=== PATIENT | female | born 1980 | race Caucasian/White ===

== ENCOUNTER 2017-05-12 19:33 | Emergency (ER) | payer OTHER ==
[2017-05-12 19:45] VITALS: BP 135/84; PULSE 92; RESP 14; TEMP 98.7; O2SAT 100
[2017-05-12] MEDS ORDERED: LORA-474 PO (20:09)
[2017-05-12] MEDS ORDERED: ADDE30TA PO (20:09)
[2017-05-12 20:26] LABS: AUTOMATED NEUTROPHIL # 3.3 TH/MM3 (1.8-7.7); BASOPHIL # 0.1 TH/MM3 (0-0.2); BASOPHIL % 0.9 % (0.0-2.0); EOSINOPHIL # 0.1 TH/MM3 (0-0.4); EOSINOPHIL % 2.4 % (0.0-4.0); HEMATOCRIT 41.6 % (35.0-46.0); LYMPH % 29.2 % (9.0-44.0); LYMPHOCYTE # 1.7 TH/MM3 (1.0-4.8); MEAN CELL VOLUME 96.9 FL (80.0-100.0); MEAN CORPUSCULAR HEMOGLOBIN 32.7 PG (27.0-34.0); MEAN CORPUSCULAR HGB CONC 33.7 % (32.0-36.0); MEAN PLATELET VOLUME 7.9 FL (7.0-11.0); MONO % 10.4 % (0.0-8.0); MONOCYTE # 0.6 TH/MM3 (0-0.9); NEUT % 57.1 % (16.0-70.0); PLATELET COUNT 252 TH/MM3 (150-450); RED CELL DISTRIBUTION WIDTH 12.9 % (11.6-17.2); WHITE BLOOD COUNT 5.8 TH/MM3 (4.0-11.0)
--- NOTE | 2017-05-12 20:27 | PD ---
HPI Chief Complaint: Psychiatric Symptoms Time Seen by Provider: 05:22 Travel History International Travel<30 days: No Contact w/Intl Traveler<30days: No Traveled to known affect area: No History of Present Illness HPI 37-year-old white female presents to emergency department for evaluation under Martinez act by PD. The patient allegedly had taken an intentional overdose of her medications. She just had her medications refilled today. Patient states that Dr. Vences feels her medications. She takes Adderall and Ativan. She had taken her Adderall this morning and has been taking additional Ativan throughout the day. According to the Martinez act states that she has taken 6 additional pills but this is refuted by the patient. She states that she has taken her typical dose of Adderall and has taken approximately 3-1 mg Ativan. She admits to feeling depressed. She is upset that her children are going [place] the [place] and she is fighting with her boyfriend. She also states that she wanted to escape reality but does not really want to hurt herself. She denies any homicidal ideation. No other ingestions other than 2 beers. No recent illness. PFSH Past Medical History ADD: Yes Anxiety: Yes Depression: Yes Immunizations Current: Yes Tetanus Vaccination: < 5 Years ?: Not LMP: 04/28/17 : 2 Para: 2 Past Surgical History Surgical History: No Previous Surgery Social History Alcohol Use: Yes Tobacco Use: No Substance Use: No Allergies-Medications (Allergen,Severity, Reaction): Coded Allergies: No Known Allergies (Unverified , 05/12/17) Reported Meds & Prescriptions Reported Meds & Active Scripts Active Reported Adderall (Amphetamine-Dextroamphetamine) 30 Mg Tab 30 Mg PO DAILY Avoid late evening doses. Space doses at least 4 to 6 hours if more than once/day dosing. Ativan (Lorazepam) 1 Mg Tab 1 Mg PO HS PRN Review of Systems General / Constitutional: No: Fever Eyes: No: Visual changes HENT: No: Headaches Cardiovascular: No: Chest Pain or Discomfort Respiratory: No: Shortness of Breath Gastrointestinal: No: Abdominal Pain Genitourinary: No: Dysuria Musculoskeletal: No: Pain Skin: No Rash Neurologic: No: Weakness Psychiatric: Positive: Anxiety, Depression, Mood Disorder, No: Suicidal Ideations, Disorder of Thought, Substance Abuse, Homicidal Ideation Endocrine: No: Polydipsia Hematologic/Lymphatic: No: Easy Bruising Physical Exam Narrative GENERAL: Well-nourished, well-developed patient. Patient is sedate. Speech is slurred. She is somewhat ataxic. SKIN: Warm and dry. HEAD: Normocephalic and atraumatic. EYES: No scleral icterus. No injection or drainage. ENT: No nasal drainage noted. Mucous membranes pink. Airway patent. NECK: Supple, trachea midline. Moves head freely without obvious discomfort. CARDIOVASCULAR: Regular rate and rhythm without murmurs, gallops, or rubs. RESPIRATORY: Breath sounds equal bilaterally. No accessory muscle use. GASTROINTESTINAL: Abdomen soft, non-tender, nondistended. EXTREMITIES: No cyanosis or edema. BACK: Nontender without obvious deformity. No CVA tenderness. NEURO: Patient is alert and oriented. no sensorimotor deficits. Nonfocal. Slurred speech. PSYCH: No delusions. No auditory or visual hallucinations. Data Data Last Documented VS Vital Signs Date Time Temp Pulse Resp B/P (MAP) Pulse Ox O2 Delivery O2 Flow Rate FiO2 05/13/17 10:18 05/13/17 06:11 72 18 99 Room Air 05/12/17 19:45 98.7 Orders Orders Complete Blood Count With Diff (05/12/17 19:45) Comprehensive Metabolic Panel (05/12/17 19:45) Urinalysis - C+S If Indicated (05/12/17 19:45) Ed Urine Pregnancytest Poc (05/12/17 19:45) Psych Screen (05/12/17 19:45) Drug Screen, Random Urine (05/12/17 19:45) Alcohol (Ethanol) (05/12/17 19:45) Salicylates (Aspirin) (05/12/17 19:45) Tylenol (Acetaminophen) (05/12/17 19:45) Diet Regular Basic (05/13/17 Breakfast) Ed Discharge Order (05/13/17 10:07) Labs Laboratory Tests Test 05/12/17 19:55 White Blood Count 5.8 TH/MM3 Red Blood Count 4.30 MIL/MM3 Hemoglobin 14.0 GM/DL Hematocrit 41.6 % Mean Corpuscular Volume 96.9 FL Mean Corpuscular Hemoglobin 32.7 PG Mean Corpuscular Hemoglobin Concent 33.7 % Red Cell Distribution Width 12.9 % Platelet Count 252 TH/MM3 Mean Platelet Volume 7.9 FL Neutrophils (%) (Auto) 57.1 % Lymphocytes (%) (Auto) 29.2 % Monocytes (%) (Auto) 10.4 % Eosinophils (%) (Auto) 2.4 % Basophils (%) (Auto) 0.9 % Neutrophils # (Auto) 3.3 TH/MM3 Lymphocytes # (Auto) 1.7 TH/MM3 Monocytes # (Auto) 0.6 TH/MM3 Eosinophils # (Auto) 0.1 TH/MM3 Basophils # (Auto) 0.1 TH/MM3 CBC Comment DIFF FINAL Differential Comment Urine Color COLORLESS Urine Turbidity HAZY Urine pH 6.0 Urine Specific [place] 1.002 Urine Protein NEG mg/dL Urine Glucose (UA) NEG mg/dL Urine Ketones NEG mg/dL Urine Occult Blood NEG Urine Nitrite NEG Urine Bilirubin NEG Urine Urobilinogen LESS THAN 2.0 MG/DL Urine Leukocyte Esterase TRACE Urine RBC 1 /hpf Urine WBC 1 /hpf Urine Squamous Epithelial Cells 2 /hpf Urine Amorphous Sediment RARE Urine Bacteria RARE /hpf Microscopic Urinalysis Comment CULT NOT INDICATED Blood Urea Nitrogen 8 MG/DL Creatinine 0.83 MG/DL Random Glucose 61 MG/DL Total Protein 7.9 GM/DL Albumin 4.0 GM/DL Calcium Level 9.1 MG/DL Alkaline Phosphatase 68 U/L Aspartate Amino Transf (AST/SGOT) 16 U/L Alanine Aminotransferase (ALT/SGPT) 20 U/L Total Bilirubin 0.7 MG/DL Sodium Level 140 MEQ/L Potassium Level 3.5 MEQ/L Chloride Level 105 MEQ/L Carbon Dioxide Level 27.8 MEQ/L Anion Gap 7 MEQ/L Estimat Glomerular Filtration Rate 77 ML/MIN Salicylates Level 2.3 MG/DL Urine Opiates Screen NEG Acetaminophen Level LESS THAN 2.0 MCG/ML Urine Barbiturates Screen NEG Urine Amphetamines Screen POS Urine Benzodiazepines Screen NEG Urine Cocaine Screen NEG Urine Cannabinoids Screen POS Ethyl Alcohol Level 115 MG/DL MDM Medical Decision Making Medical Screen Exam Complete: Yes Emergency Medical Condition: Yes Medical Record Reviewed: Yes Differential Diagnosis MDM: High Differential diagnoses: Schizophrenia, schizoaffective disorder, bipolar, anxiety, depression, adjustment reaction, mood disorder NOS, ODD, depressive disorder NOS, dementia, dementia with agitation, psychosis NOS, substance induced mood disorder, DMDD, Asperger syndrome, infection,electrolyte abnormality, malingering. Narrative Course Mental health screening discussed with the patient. Psychiatric screen ordered. The patient has been medically cleared. Diagnosis Primary Impression: Medical clearance for psychiatric admission Additional Impression: intentional overdose Condition: Stable Telly Ponce May 12, 2017 20:27
[2017-05-12 20:55] LABS: ACETAMINOPHEN LESS THAN 2.0 MCG/ML (10.0-30.0); ALKALINE PHOSPHATASE 68 U/L (45-117); ALT (GPT) 20 U/L (10-53); AST (GOT) 16 U/L (15-37); BICARBONATE 27.8 MEQ/L (21.0-32.0); BLOOD UREA NITROGEN 8 MG/DL (7-18); CALCIUM 9.1 MG/DL (8.5-10.1); CHLORIDE 105 MEQ/L (98-107); CREATININE 0.83 MG/DL (0.50-1.00); GLOMERULAR FILTRATION RATE 77 ML/MIN (>89); GLUCOSE,RANDOM 61 MG/DL (74-106); SODIUM (NA) 140 MEQ/L (136-145); TOTAL BILIRUBIN ADULT 0.7 MG/DL (0.2-1.0); TOTAL PROTEIN 7.9 GM/DL (6.4-8.2)
[2017-05-12 21:30] LABS: AMORPHOUS SEDIMENT, URINE RARE; BACTERIA, URINE RARE /hpf; BILIRUBIN, URINE NEG (NEG); BLOOD, URINE NEG (NEG); GLUCOSE,URINE NEG (NEG); KETONE, URINE NEG (NEG); NITRITE,URINE NEG (NEG); SQUAMOUS EPITHELIAL CELL URINE 2 /hpf (0-5); URINE COLOR COLORLESS (YELLW/STRAW); URINE LEUKOCYTE ESTERASE TRACE (NEG)
[2017-05-12 22:47] VITALS: BP 101/71; PULSE 77; RESP 18; O2SAT 97
[2017-05-13 06:11] VITALS: BP 124/80; PULSE 72; RESP 18; O2SAT 99
--- NOTE | 2017-05-13 10:08 | PD ---
Physical Exam Time Seen by Provider: 10:07 Narrative Please refer to previous providers dictation for details surrounding the patient 's current visit. Data Data Last Documented VS Vital Signs Date Time Temp Pulse Resp B/P (MAP) Pulse Ox O2 Delivery O2 Flow Rate FiO2 05/13/17 06:11 72 18 124/80 (95) 99 Room Air 05/12/17 19:45 98.7 Orders Orders Complete Blood Count With Diff (05/12/17 19:45) Comprehensive Metabolic Panel (05/12/17 19:45) Urinalysis - C+S If Indicated (05/12/17 19:45) Ed Urine Pregnancytest Poc (05/12/17 19:45) Psych Screen (05/12/17 19:45) Drug Screen, Random Urine (05/12/17 19:45) Alcohol (Ethanol) (05/12/17 19:45) Salicylates (Aspirin) (05/12/17 19:45) Tylenol (Acetaminophen) (05/12/17 19:45) Diet Regular Basic (05/13/17 Breakfast) Ed Discharge Order (05/13/17 10:07) Labs Laboratory Tests Test 05/12/17 19:55 White Blood Count 5.8 TH/MM3 Red Blood Count 4.30 MIL/MM3 Hemoglobin 14.0 GM/DL Hematocrit 41.6 % Mean Corpuscular Volume 96.9 FL Mean Corpuscular Hemoglobin 32.7 PG Mean Corpuscular Hemoglobin Concent 33.7 % Red Cell Distribution Width 12.9 % Platelet Count 252 TH/MM3 Mean Platelet Volume 7.9 FL Neutrophils (%) (Auto) 57.1 % Lymphocytes (%) (Auto) 29.2 % Monocytes (%) (Auto) 10.4 % Eosinophils (%) (Auto) 2.4 % Basophils (%) (Auto) 0.9 % Neutrophils # (Auto) 3.3 TH/MM3 Lymphocytes # (Auto) 1.7 TH/MM3 Monocytes # (Auto) 0.6 TH/MM3 Eosinophils # (Auto) 0.1 TH/MM3 Basophils # (Auto) 0.1 TH/MM3 CBC Comment DIFF FINAL Differential Comment Urine Color COLORLESS Urine Turbidity HAZY Urine pH 6.0 Urine Specific [place] 1.002 Urine Protein NEG mg/dL Urine Glucose (UA) NEG mg/dL Urine Ketones NEG mg/dL Urine Occult Blood NEG Urine Nitrite NEG Urine Bilirubin NEG Urine Urobilinogen LESS THAN 2.0 MG/DL Urine Leukocyte Esterase TRACE Urine RBC 1 /hpf Urine WBC 1 /hpf Urine Squamous Epithelial Cells 2 /hpf Urine Amorphous Sediment RARE Urine Bacteria RARE /hpf Microscopic Urinalysis Comment CULT NOT INDICATED Blood Urea Nitrogen 8 MG/DL Creatinine 0.83 MG/DL Random Glucose 61 MG/DL Total Protein 7.9 GM/DL Albumin 4.0 GM/DL Calcium Level 9.1 MG/DL Alkaline Phosphatase 68 U/L Aspartate Amino Transf (AST/SGOT) 16 U/L Alanine Aminotransferase (ALT/SGPT) 20 U/L Total Bilirubin 0.7 MG/DL Sodium Level 140 MEQ/L Potassium Level 3.5 MEQ/L Chloride Level 105 MEQ/L Carbon Dioxide Level 27.8 MEQ/L Anion Gap 7 MEQ/L Estimat Glomerular Filtration Rate 77 ML/MIN Salicylates Level 2.3 MG/DL Urine Opiates Screen NEG Acetaminophen Level LESS THAN 2.0 MCG/ML Urine Barbiturates Screen NEG Urine Amphetamines Screen POS Urine Benzodiazepines Screen NEG Urine Cocaine Screen NEG Urine Cannabinoids Screen POS Ethyl Alcohol Level 115 MG/DL MDM Medical Record Reviewed: Yes Supervised Visit with LEROY: No Narrative Course Patient has been seen and evaluated by psychiatry. Martinez act has been lifted. Patient will be discharged home with no further acute medical needs at this time. Diagnosis Primary Impression: Medical clearance for psychiatric admission Additional Impression: intentional overdose Referrals: [facility] (Out patient) Med/Other Pt SpecificInfo: No Change to Meds Disposition: 01 DISCHARGE HOME Condition: Stable CatesNandini price NITISH May 13, 2017 10:08
--- NOTE | 2017-05-13 10:11 | PD ---
History of Present Illness Chief Complaint: Psychiatric Symptoms Time Seen by Provider: 10:00 Travel History International Travel<30 Days: No Contact w/Intl Traveler<30days: No Known affected area: No Legal Status Legal Status: Martinez Act Martinez Act Signed By: Maria Teresa Tierney History of Present Illness: 37-year-old female presents under a Martinez act after allegedly overdosing on medication and expressing suicidal thinking. Patient denies an overdose on her medication and no longer makes statements of a suicidal nature. She acknowledges and regrets her statements last night. She was noted to be intoxicated with alcohol and she does take benzodiazepines and Adderall as prescription medicines. She was fighting with her boyfriend and feels this was the cause of her behavior. She is now verbally greg for safety and she is competent to do so. She has no evidence of intoxication, psychotic thinking , or cognitive deficits. PFSH Past Medical History ADD: Yes Anxiety: Yes Depression: Yes Immunizations Current: Yes Tetanus Vaccination: < 5 Years ?: Not LMP: 04/28/17 : 2 Para: 2 Past Surgical History Surgical History: No Previous Surgery Psychiatric History Psychiatric History Hx Psychiatric Treatment: HAS RECENTLY STARTED TAKING ADDERALL AGAIN FOR ADD History of Inpatient Treatment: No Guns or firearms in home: No Social History Hx Alcohol Use: Yes Hx Tobacco Use: No Hx Substance Use: Yes (OVER USE OF PRESCRIPTION MEDS) Hx of Substance Use Treatment: No Allergies-Medications (Allergen,Severity, Reaction): Coded Allergies: No Known Allergies (Unverified , 05/12/17) Reported Meds & Prescriptions Reported Meds & Active Scripts Active Reported Adderall (Amphetamine-Dextroamphetamine) 30 Mg Tab 30 Mg PO DAILY Avoid late evening doses. Space doses at least 4 to 6 hours if more than once/day dosing. Ativan (Lorazepam) 1 Mg Tab 1 Mg PO HS PRN Review of Systems Psychiatric: COMPLAINS OF: Anxiety Except as stated in HPI: all other systems reviewed are Neg Mental Status Examination Appearance: Appropriate Consciousness: Alert Orientation: x4 Motor Activity: Normal gait Speech: Unremarkable Language: Adequate Fund of Knowledge: Adequate Attention and Concentration: Adequate Memory: Unremarkable Mood: Appropriate Affect: Appropriate Thought Process & Associations: Intact Thought Content: Appropriate Hallucination Type: None Delusion Type: None Suicidal Ideation: No Suicidal Plan: No Suicidal Intention: No Homicidal Ideation: No Homicidal Plan: No Homicidal Intention: No Insight: Adequate Judgment: Adequate MDM Medical Decision Making Medical Record Reviewed: Yes Assessment/Plan Patient interviewed at bedside with nurse Carrera. Case discussed with nurse Carrera. Medical record reviewed. Patient denies any suicidal or homicidal ideation, plan or intent and contracts for safety. She does not meet criteria for Martinez act or involuntary psychiatric hospitalization. She would like to go home and resume her treatment on an outpatient basis. Orders Orders Complete Blood Count With Diff (05/12/17 19:45) Comprehensive Metabolic Panel (05/12/17 19:45) Urinalysis - C+S If Indicated (05/12/17 19:45) Ed Urine Pregnancytest Poc (05/12/17 19:45) Psych Screen (05/12/17 19:45) Drug Screen, Random Urine (05/12/17 19:45) Alcohol (Ethanol) (05/12/17 19:45) Salicylates (Aspirin) (05/12/17 19:45) Tylenol (Acetaminophen) (05/12/17 19:45) Diet Regular Basic (05/13/17 Breakfast) Ed Discharge Order (05/13/17 10:07) Results Vital Signs Date Time Temp Pulse Resp B/P (MAP) Pulse Ox O2 Delivery O2 Flow Rate FiO2 05/13/17 06:11 72 18 124/80 (95) 99 Room Air 05/12/17 22:47 77 18 101/71 (81) 97 Room Air 05/12/17 19:45 98.7 92 14 135/84 (101) 100 Laboratory Tests Test 05/12/17 19:55 White Blood Count 5.8 Red Blood Count 4.30 Hemoglobin 14.0 Hematocrit 41.6 Mean Corpuscular Volume 96.9 Mean Corpuscular Hemoglobin 32.7 Mean Corpuscular Hemoglobin Concent 33.7 Red Cell Distribution Width 12.9 Platelet Count 252 Mean Platelet Volume 7.9 Neutrophils (%) (Auto) 57.1 Lymphocytes (%) (Auto) 29.2 Monocytes (%) (Auto) 10.4 Eosinophils (%) (Auto) 2.4 Basophils (%) (Auto) 0.9 Neutrophils # (Auto) 3.3 Lymphocytes # (Auto) 1.7 Monocytes # (Auto) 0.6 Eosinophils # (Auto) 0.1 Basophils # (Auto) 0.1 CBC Comment DIFF FINAL Differential Comment Urine Color COLORLESS Urine Turbidity HAZY Urine pH 6.0 Urine Specific [place] 1.002 Urine Protein NEG Urine Glucose (UA) NEG Urine Ketones NEG Urine Occult Blood NEG Urine Nitrite NEG Urine Bilirubin NEG Urine Urobilinogen LESS THAN 2.0 Urine Leukocyte Esterase TRACE Urine RBC 1 Urine WBC 1 Urine Squamous Epithelial Cells 2 Urine Amorphous Sediment RARE Urine Bacteria RARE Microscopic Urinalysis Comment CULT NOT INDICATED Blood Urea Nitrogen 8 Creatinine 0.83 Random Glucose 61 Total Protein 7.9 Albumin 4.0 Calcium Level 9.1 Alkaline Phosphatase 68 Aspartate Amino Transf (AST/SGOT) 16 Alanine Aminotransferase (ALT/SGPT) 20 Total Bilirubin 0.7 Sodium Level 140 Potassium Level 3.5 Chloride Level 105 Carbon Dioxide Level 27.8 Anion Gap 7 Estimat Glomerular Filtration Rate 77 Salicylates Level 2.3 Urine Opiates Screen NEG Acetaminophen Level LESS THAN 2.0 Urine Barbiturates Screen NEG Urine Amphetamines Screen POS Urine Benzodiazepines Screen NEG Urine Cocaine Screen NEG Urine Cannabinoids Screen POS Ethyl Alcohol Level 115 Diagnosis Primary Impression: Adjustment disorder with mixed disturbance of emotions and conduct Condition: Stable Darren Pace MD May 13, 2017 10:11
== END 2017-05-13 10:19 | disposition home or self-care (01) ==
LOC: NEPD 19:33 → NEPJ 05-13 10:19
DX: F43.25 Adjustment disorder with mixed disturbance of emotions and conduct (principal); T42.4X2A Poisoning by benzodiazepines, intentional self-harm, initial encounter
CPT/HCPCS: 80053; 80307; 81001; 84703; 85025; 99284